=== PATIENT | male | born 1950 | race Caucasian/White ===

== ENCOUNTER 2021-05-22 08:53 | Observation (INO) | payer OTHER, MEDICARE ==
[2021-05-22] MEDS ORDERED: Sodium Chloride 0.9% 10 ML SDV IV PRN (08:58)
[2021-05-22] MEDS ORDERED: Sodium Chloride 0.9% 2.5 ML Syringe FLUSH PRN (08:58)
[2021-05-22] MEDS ORDERED: Sodium Chloride 0.9% 10 ML Syringe FLUSH PRN (08:58)
--- NOTE | 2021-05-22 09:11 | EDM.PDOC ---
ED HPI GENERAL MEDICAL PROBLEM - General Chief Complaint: Neuro Symptoms/Deficits Stated Complaint: POSSIBLE STROKE Time Seen by Provider: 05/22/21 08:58 - History of Present Illness INITIAL COMMENTS - FREE TEXT/NARRATIVE: CHIEF COMPLAINT(S): Slurred speech HISTORY OF PRESENT ILLNESS: This is a 70-year-old man with a past medical history of prostate cancer with recent finishing of his chemotherapy who presents to the emergency department as a medical resuscitation via walk-in triage with a chief complaint of slurred speech. The patient states that prior to arrival he was at the [facility]. He states that at that time he started to have slurred speech and some weakness on his face. He denies any headache, blurry vision, loss of vision, trouble walking, swallowing. States that he has not had a CVA before. He states the onset was approximately 5 minutes prior to arrival. He denies any use of oral anticoagulation and denies any head injury or loss of consciousness. He denies any chest pain, shortness of breath, abdominal pain, nausea or vomiting. He denies any other symptoms. REVIEW OF SYSTEMS: Constitutional: Denies fever, chills. Eyes: Denies eye pain Ears, Nose, Mouth, & Throat: Denies earache Cardiovascular: Denies chest pain Respiratory: Denies shortness of breath Gastrointestinal: Denies Nausea, vomiting, diarrhea, hematochezia. Genitourinary: Denies hematuria Skin:Denies a rash Neurological: Positive for slurred speech and facial weakness. Denies trouble walking, swallowing. Denies any headache. Psychiatric: Denies depression PAST MEDICAL HISTORY: As per history of present illness and as reviewed below otherwise noncontributory. SURGICAL HISTORY: As per history of present illness and as reviewed below otherwise noncontributory. SOCIAL HISTORY: As per history of present illness and as reviewed below otherwise noncontributory. FAMILY HISTORY: As per history of present illness and as reviewed below otherwise noncontributory. EXAMINATION OF ORGAN SYSTEMS/BODY AREAS: VITALS: Blood pressure was 175/113, heart rate 90, respiratory rate 18 with an oxygen saturation of 98% on room air. Temperature 36.2. GENERAL: The patient is well-nourished, well-developed, in no acute distress. HEAD: Normocephalic, atraumatic. EYES: EOMs intact. PERRL. No vertical or horizontal nystagmus. ENT. External ears WNL. Nares patent. Oropharynx is clear with no erythema or exudate. No uvular or tongue swelling. NECK: Supple, no masses. Trachea is midline. LUNGS: No tachypnea or intercostal retractions. Clear to auscultation bilaterally, no wheezing, no rales, no stridor, no rhonchi. CARDIOVASCULAR: Regular rate and rhythm with S1-S2. No murmur, rubs or gallops. No edema. No JVD. ABDOMEN: Soft, non-distended, non-tender. Bowel sounds present in all 4 quadrants. No rebound tenderness, guarding, or peritoneal signs. MUSCULOSKELETAL: No deformity. Patient is moving all 4 limbs spontaneously. NEUROLOGICAL: Alert and oriented x3. Facies are symmetrical. Tongue protrudes midline. Facial sensation is intact. No visual field defects. Shoulder shrug is equal bilaterally. Left upper extremity weakness as compared to right. Slurred speech is present. [id number], [id number] are within normal limits. NIH stroke scale of 2 SKIN: No rashes, or pallor. No signs of injury. MEDICAL DECISION MAKING AND COURSE IN THE ED WITH INTERPRETATION/REVIEW OF DIAGNOSTIC STUDIES: This is a 70-year-old man who presents to the emergency department as a medical resuscitation via walk-in triage with slurred speech and left upper extremity weakness with an NIH stroke scale of 2.. Immediately upon entering the resuscitation room the patient was disrobed, placed on continuous cardiac monitoring, and IV access was established by nursing. Patient is able to speak thus displaying a patent airway, breath sounds are equal bilaterally, and patient has palpable pulses in all 4 extremities. Given the NIH stroke scale of 2 we will undergo a stroke work-up. Xxskq-qt-yaip glucose was 87. Laboratory analysis was unremarkable. Troponin was negative. TSH normal. Qniql-en-quip glucose was 87. The radiological images were viewed by myself along with reading the report from the radiologist. CT head without contrast does not reveal any acute intracranial hemorrhage or abnormality. Mild diffuse cerebral volume loss. CTA of the head and neck do not reveal any acute intracranial abnormality. No large vessel occlusion. Minor carotid atherosclerotic disease without stenosis. After imaging on reevaluation the patient had his symptoms resolved. At this time I did discuss with him that I would like to speak with the neurologist. Therefore I contacted [facility] in [place] and spoke with Dr. Hamilton who at this time recommended MRI, carotid duplex and medical management given that his symptoms had improved. States the patient should be admitted for observation but does not need to be transferred. No TNKase administered given resolving symptoms. Therefore I contacted our hospitalist Dr. Serna who accepted the patient for admission. The patient was amenable to admission at this time DISPOSITION: Admission CONDITION: Serious FINAL IMPRESSION(S)/DIAGNOSES: 1. Acute transient ischemic attack Critical Care Procedure Note Authorized and performed by: Richard St M.D. Critical Care Time: 45 minutes Due to a high probability of clinically significant, life threatening deterioration, the patient required my highest level of preparedness to intervene emergently and I personally spent this critical care time directly and personally managing the patient. This critical care time included obtaining a history, examining the patient, pulse oximetry; ordering and review of studies; arranging urgent treatment with development of a management plan; evaluation of a patients reponse to treatment; frequent assessment; and discussions with other providers. This critical care time was performed to assess and manage the high probability of imminent, life threatening deterioration that could result in multiorgan failure. It was exclusive of separate billable procedures and treating other patients. Please see MDM section and rest of the note for further information on patient assessment and treatment. Please see MDM section and rest of the note for further information on patient assessment and treatment. - Related Data Allergies Allergy/AdvReac Type Severity Reaction Status Date / Time Penicillins Allergy Nausea and Verified 05/22/21 11:41 Vomiting Home Meds: Home Meds Acetaminophen 500 mg PO ASDIRECTED PRN 04/21/20 [History] Ibuprofen 200 mg PO ASDIRECTED PRN 04/21/20 [History] Multivit-Min/FA/Lycopen/Lutein [Centrum Silver Tablet] 1 tab PO DAILY 04/21/20 [History] Past Medical History - Past Health History Medical/Surgical History: Denies Medical/Surgical History HEENT History: Reports: Hard of Hearing, Other (See Below) Other HEENT History: wears glasses, has bilateral hearing aides (has high tone deafness) , has constant ringing in his ears Cardiovascular History: Reports: None Respiratory History: Reports: None Gastrointestinal History: Reports: Hepatitis Other Gastrointestinal History: occasional heartburn- takes tums, Hx of Hepatitis B Genitourinary History: Reports: Other (See Below) Other Genitourinary History: current Prostate cancer Musculoskeletal History: Reports: Arthritis, Fracture Other Musculoskeletal History: hx of fx fingers, toes and right arm Neurological History: Reports: Concussion, Migraines, Seizure Other Neuro History: hx of [place] seizures as a teenager from "growing too fast", has Occular migraines Psychiatric History: Reports: None Endocrine/Metabolic History: Reports: None Hematologic History: Reports: None Immunologic History: Reports: None Oncologic (Cancer) History: Reports: Prostate Dermatologic History: Reports: Other (See Below) Other Dermatologic History: occasional "itchy spots" - Infectious Disease History Infectious Disease History: Reports: Chicken Pox, Hepatitis B, Measles, Mumps - Past Surgical History Musculoskeletal Surgical History: Reports: Other (See Below), Shoulder Surgery Social & Family History - Family History Family Medical History: No Pertinent Family History - Caffeine Use Caffeine Use: Reports: Coffee ED ROS GENERAL - Review of Systems Review Of Systems: See Below ED EXAM, GENERAL - Physical Exam Exam: See Below Course - Vital Signs Last Recorded V/S: Last Vital Signs Temp 36.6 C 05/22/21 16:20 Pulse 73 05/22/21 16:20 Resp 15 05/22/21 16:20 BP 164/91 H 05/22/21 16:20 Pulse Ox 95 05/22/21 16:20 - Orders/Labs/Meds Orders: Active Orders 24 hr Category Date Time Status Admission Status [Patient Status] [ADT] Stat ADT 05/22/21 10:22 Active Assess Neurological Status [RC] CONTINUOUS Care 05/22/21 08:58 Active Blood Glucose Check, Bedside [RC] STAT Care 05/22/21 08:58 Active Cardiac Monitoring [RC] Q8H Care 05/22/21 08:58 Active Communication Order [RC] STAT Care 05/22/21 08:58 Active EKG 12 Lead [EKG Documentation Completion] [RC] STAT Care 05/22/21 08:59 Active Height and Weight [RC] UPON Care 05/22/21 08:58 Active NIH Stroke Scale [RC] Q15M Care 05/22/21 08:58 Active NIH Stroke Scale [RC] STAT Care 05/22/21 08:58 Active Oxygen Therapy, ED [RC] ASDIRECTED Care 05/22/21 08:58 Active Vital Signs [RC] Q15M Care 05/22/21 08:58 Active Sodium Chloride 0.9% [Normal Saline] Med 05/22/21 08:58 Active 10 ml IV ASDIRECTED PRN Sodium Chloride 0.9% [Saline Flush] Med 05/22/21 08:58 Active 10 ml FLUSH ASDIRECTED PRN Sodium Chloride 0.9% [Saline Flush] Med 05/22/21 08:58 Active 2.5 ml FLUSH ASDIRECTED PRN Peripheral IV Insertion Adult [OM.PC] Stat Oth 05/22/21 08:58 Ordered Peripheral IV Insertion Adult [OM.PC] Stat Ot 05/22/21 08:58 Ordered Resuscitation Status Stat Resus Stat 05/22/21 08:58 Ordered Medication Orders Acetaminophen (Acetaminophen 325 Mg Tab) 650 mg PO Q4H PRN PRN Reason: Pain (Mild 1-3)/fever Albuterol/Ipratropium (Albuterol/Ipratropium 3.0-0.5 Mg/3 Ml Neb Soln) 3 ml NEB Q4HRRT PRN PRN Reason: Shortness Of Breath/wheezing Aspirin (Aspirin 81 Mg Tab.Chew) 81 mg PO DAILY CARMEN Atorvastatin Calcium (Atorvastatin 20 Mg Tab) 20 mg PO BEDTIME CARMEN Ondansetron HCl (Ondansetron 4 Mg/2 Ml Sdv) 4 mg IVPUSH Q4H PRN PRN Reason: Nausea/Vomiting Sodium Chloride (Sodium Chloride 0.9% 10 Ml Syringe) 10 ml FLUSH ASDIRECTED PRN PRN Reason: Keep Vein Open Last Admin: 05/22/21 09:23 Dose: 10 ml Documented by: JAMES Sodium Chloride (Sodium Chloride 0.9% 2.5 Ml Syringe) 2.5 ml FLUSH ASDIRECTED PRN PRN Reason: Keep Vein Open Last Admin: 05/22/21 09:23 Dose: 2.5 ml Documented by: HUYENNMEG Sodium Chloride (Sodium Chloride 0.9% 10 Ml Sdv) 10 ml IV ASDIRECTED PRN PRN Reason: IV Use Labs: Laboratory Tests 05/22/21 05/22/21 05/22/21 Range/Units 08:57 08:57 08:57 WBC 4.98 (4.0-11.0) K/uL RBC 4.63 (4.50-5.90) M/uL Hgb 15.0 (13.0-17.0) g/dL Hct 42.8 (38.0-50.0) % MCV 92.4 (80.0-98.0) fL MCH 32.4 H (27.0-32.0) pg MCHC 35.0 (31.0-37.0) g/dL RDW Std Deviation 49.1 (28.0-62.0) fl RDW Coeff of Laquita 15 (11.0-15.0) % Plt Count 297 (150-400) K/uL MPV 9.60 (7.40-12.00) fL Neut % (Auto) 69.7 (48.0-80.0) % Lymph % (Auto) 12.7 L (16.0-40.0) % Benzie % (Auto) 10.0 (0.0-15.0) % Eos % (Auto) 7.0 (0.0-7.0) % Baso % (Auto) 0.6 (0.0-1.5) % Neut # (Auto) 3.5 (1.4-5.7) K/uL Lymph # (Auto) 0.6 (0.6-2.4) K/uL Benzie # (Auto) 0.5 (0.0-0.8) K/uL Eos # (Auto) 0.4 (0.0-0.7) K/uL Baso # (Auto) 0.0 (0.0-0.1) K/uL Nucleated RBC % 0.0 /100WBC Nucleated RBCs # 0 K/uL INR 0.93 APTT 25.8 (18.6-31.3) SEC Sodium 142 (136-148) mmol/L Potassium 3.8 (3.5-5.1) mmol/L Chloride 104 (98-107) mmol/L Carbon Dioxide 29.9 (21.0-32.0) mmol/L BUN 17 (7.0-18.0) mg/dL Creatinine 1.1 (0.8-1.3) mg/dL Est Cr Clr Drug Dosing TNP Estimated GFR (MDRD) > 60.0 ml/min Glucose 77 (74-106) mg/dL Hemoglobin A1c (4.5 - 6.2) % Calcium 8.5 (8.5-10.1) mg/dL Total Bilirubin 0.3 (0.2-1.0) mg/dL AST 24 (15-37) IU/L ALT 45 (14-63) IU/L Alkaline Phosphatase 91 (46-116) U/L Troponin I < 0.050 (0.000-0.056) ng/mL Total Protein 6.6 (6.4-8.2) g/dL Albumin 3.7 (3.4-5.0) g/dL Globulin 2.9 (2.6-4.0) g/dL Albumin/Globulin Ratio 1.3 (0.9-1.6) Triglycerides (0-200) mg/dL Cholesterol (50-200) mg/dL LDL Cholesterol, Calc (60-180) mg/dL VLDL Cholesterol (5-55) mg/dL HDL Cholesterol (40-60) mg/dL Cholesterol/HDL Ratio (3.3-6.0) Vitamin B12 (193-986) pg/mL TSH, Ultra Sensitive (0.36-3.74) uIU/mL 05/22/21 05/22/21 Range/Units 08:57 08:57 WBC (4.0-11.0) K/uL RBC (4.50-5.90) M/uL Hgb (13.0-17.0) g/dL Hct (38.0-50.0) % MCV (80.0-98.0) fL MCH (27.0-32.0) pg MCHC (31.0-37.0) g/dL RDW Std Deviation (28.0-62.0) fl RDW Coeff of Laquita (11.0-15.0) % Plt Count (150-400) K/uL MPV (7.40-12.00) fL Neut % (Auto) (48.0-80.0) % Lymph % (Auto) (16.0-40.0) % Benzie % (Auto) (0.0-15.0) % Eos % (Auto) (0.0-7.0) % Baso % (Auto) (0.0-1.5) % Neut # (Auto) (1.4-5.7) K/uL Lymph # (Auto) (0.6-2.4) K/uL Benzie # (Auto) (0.0-0.8) K/uL Eos # (Auto) (0.0-0.7) K/uL Baso # (Auto) (0.0-0.1) K/uL Nucleated RBC % /100WBC Nucleated RBCs # K/uL INR APTT (18.6-31.3) SEC Sodium (136-148) mmol/L Potassium (3.5-5.1) mmol/L Chloride (98-107) mmol/L Carbon Dioxide (21.0-32.0) mmol/L BUN (7.0-18.0) mg/dL Creatinine (0.8-1.3) mg/dL Est Cr Clr Drug Dosing Estimated GFR (MDRD) ml/min Glucose (74-106) mg/dL Hemoglobin A1c 6.0 (4.5 - 6.2) % Calcium (8.5-10.1) mg/dL Total Bilirubin (0.2-1.0) mg/dL AST (15-37) IU/L ALT (14-63) IU/L Alkaline Phosphatase (46-116) U/L Troponin I (0.000-0.056) ng/mL Total Protein (6.4-8.2) g/dL Albumin (3.4-5.0) g/dL Globulin (2.6-4.0) g/dL Albumin/Globulin Ratio (0.9-1.6) Triglycerides 184 (0-200) mg/dL Cholesterol 226 H (50-200) mg/dL LDL Cholesterol, Calc 127 (60-180) mg/dL VLDL Cholesterol 36 (5-55) mg/dL HDL Cholesterol 62 H (40-60) mg/dL Cholesterol/HDL Ratio 3.6 (3.3-6.0) Vitamin B12 502 (193-986) pg/mL TSH, Ultra Sensitive 2.23 (0.36-3.74) uIU/mL Meds: Medications Generic Name Dose Route Start Last Admin Trade Name Freq PRN Reason Stop Dose Admin Acetaminophen 650 mg 05/22/21 13:03 Acetaminophen 325 Mg Tab PO Q4H PRN Pain (Mild 1-3)/fever Albuterol/Ipratropium 3 ml 05/22/21 13:03 Albuterol/Ipratropium 3.0-0.5 Mg/3 Ml Neb Soln NEB Q4HRRT PRN Shortness Of Breath/wheezing Aspirin 81 mg 05/23/21 09:00 Aspirin 81 Mg Tab.Chew PO DAILY CARMEN Atorvastatin Calcium 20 mg 05/22/21 21:00 Atorvastatin 20 Mg Tab PO BEDTIME CARMEN Ondansetron HCl 4 mg 05/22/21 13:03 Ondansetron 4 Mg/2 Ml Sdv IVPUSH Q4H PRN Nausea/Vomiting Sodium Chloride 10 ml 05/22/21 08:58 05/22/21 09:23 Sodium Chloride 0.9% 10 Ml Syringe FLUSH 10 ml ASDIRECTED PRN Administration Keep Vein Open Sodium Chloride 2.5 ml 05/22/21 08:58 05/22/21 09:23 Sodium Chloride 0.9% 2.5 Ml Syringe FLUSH 2.5 ml ASDIRECTED PRN Administration Keep Vein Open Sodium Chloride 10 ml 05/22/21 08:58 Sodium Chloride 0.9% 10 Ml Sdv IV ASDIRECTED PRN IV Use Discontinued Medications Generic Name Dose Route Start Last Admin Trade Name Freq PRN Reason Stop Dose Admin Aspirin 324 mg 05/22/21 09:48 05/22/21 10:01 Aspirin 81 Mg Tab.Chew PO 05/22/21 09:49 324 mg ONETIME ONE Administration Iopamidol 100 ml 05/22/21 09:18 05/22/21 09:18 Iopamidol 755 Mg/Ml 500 Ml Multipack Bottle IVPUSH 05/22/21 09:19 100 ml ONETIME ONE Administration Departure - Departure Time of Disposition: 10:22 Disposition: Refer to Observation Clinical Impression: TIA (transient ischemic attack) - Discharge Information Sepsis Event Note (ED) - Focused Exam Vital Signs: Vital Signs Temp Pulse Resp BP Pulse Ox 05/22/21 10:30 79 19 155/96 H 94 L 05/22/21 10:15 76 18 156/92 H 88 L 05/22/21 10:00 70 19 159/83 H 94 L 05/22/21 09:45 76 18 158/89 H 93 L 05/22/21 09:30 36.8 C 81 19 157/89 H 92 L 05/22/21 08:53 36.2 C 90 18 175/113 H 98 - My Orders Last 24 Hours: My Active Orders 05/22/21 08:58 Assess Neurological Status [RC] CONTINUOUS Blood Glucose Check, Bedside [RC] STAT Cardiac Monitoring [RC] Q8H Communication Order [RC] STAT Height and Weight [RC] UPON NIH Stroke Scale [RC] Q15M NIH Stroke Scale [RC] STAT Oxygen Therapy, ED [RC] ASDIRECTED Vital Signs [RC] Q15M Sodium Chloride 0.9% [Normal Saline] 10 ml IV ASDIRECTED PRN Sodium Chloride 0.9% [Saline Flush] 10 ml FLUSH ASDIRECTED PRN Sodium Chloride 0.9% [Saline Flush] 2.5 ml FLUSH ASDIRECTED PRN Peripheral IV Insertion Adult [OM.PC] Stat Peripheral IV Insertion Adult [OM.PC] Stat Resuscitation Status Stat 05/22/21 08:59 EKG 12 Lead [EKG Documentation Completion] [RC] STAT 05/22/21 10:22 Admission Status [Patient Status] [ADT] Stat - Assessment/Plan Last 24 Hours: My Active Orders 05/22/21 08:58 Assess Neurological Status [RC] CONTINUOUS Blood Glucose Check, Bedside [RC] STAT Cardiac Monitoring [RC] Q8H Communication Order [RC] STAT Height and Weight [RC] UPON NIH Stroke Scale [RC] Q15M NIH Stroke Scale [RC] STAT Oxygen Therapy, ED [RC] ASDIRECTED Vital Signs [RC] Q15M Sodium Chloride 0.9% [Normal Saline] 10 ml IV ASDIRECTED PRN Sodium Chloride 0.9% [Saline Flush] 10 ml FLUSH ASDIRECTED PRN Sodium Chloride 0.9% [Saline Flush] 2.5 ml FLUSH ASDIRECTED PRN Peripheral IV Insertion Adult [OM.PC] Stat Peripheral IV Insertion Adult [OM.PC] Stat Resuscitation Status Stat 05/22/21 08:59 EKG 12 Lead [EKG Documentation Completion] [RC] STAT 05/22/21 10:22 Admission Status [Patient Status] [ADT] Stat
[2021-05-22] MEDS ORDERED: Iopamidol 755 MG/ML 500 ML Multipack Bottle IVPUSH ONE (09:18)
[2021-05-22 09:26] LABS: BLOOD UREA NITROGEN,BUN 17 mg/dL (7.0-18.0); CARBON DIOXIDE,CO2 29.9 mmol/L (21.0-32.0); CHLORIDE,CL 104 mmol/L (98-107); GLUCOSE RANDOM 77 mg/dL (74-106); POTASSIUM,K 3.8 mmol/L (3.5-5.1); SODIUM,NA 142 mmol/L (136-148)
--- NOTE | 2021-05-22 09:47 | CT ---
INDICATION: Acute stroke, slurred speech, left arm weakness. TECHNIQUE: After standard noncontrast head CT, high resolution axial CT images acquired through the head and neck following rapid intravenous administration of iodinated contrast. Multiplanar MIPS of cranial and cervical vasculature performed. FINDINGS: Noncontrast head CT: There is no intracranial hemorrhage or fluid collection. The downey-white matter differentiation is maintained. Brain parenchymal volume loss is noted. There are nonspecific white matter hypodensities commonly seen with cerebral small vessel disease. The ventricles are of normal morphology. The basal cisterns are clear. CTA head: There is normal filling of the intracranial vasculature; i.e. there is no large vessel occlusion or significant intracranial stenosis. There is no cerebral aneurysm or evidence for vascular malformation. CTA neck: Carotid arteries: There is atherosclerotic plaque. There is no significant stenosis by NASCET criteria. There is no evidence for dissection. Vertebral arteries: There is no significant stenosis. There is no evidence for dissection. The soft tissues of the neck are within normal limits. The cervical spine is in normal alignment. Degenerative changes are noted in the cervical spine. The lung apices are clear. IMPRESSION: No acute intracranial abnormality at CT/CTA. No large vessel occlusion. Minor carotid atherosclerotic disease without stenosis. Jesús Higgins MD Neurointerventional [employer] [facility] Please note that all CT scans at this facility use dose modulation, iterative reconstruction, and/or weight-based dosing when appropriate to reduce radiation dose to as low as reasonably achievable. Dictated by Jesús Higgins MD @ 05/22/2021 11:36:[address] Jesús Higgins @ May 22 2021 11:36AM
--- NOTE | 2021-05-22 09:47 | CT ---
INDICATION: Slurred speech. Left arm weakness. TECHNIQUE: Noncontrast CT images were acquired through the brain. COMPARISON: None. FINDINGS: Prominence of the ventricles and sulci compatible with mild diffuse cerebral volume loss. No mass effect or midline shift. The downey white differentiation is maintained. No acute intracranial hemorrhage or pathologic extra-axial fluid collection. Intracranial atherosclerotic calcifications. The globes are symmetric. The calvarium is intact. Incompletely visualized left maxillary sinus retention cyst or polyp. The mastoid air cells are clear. IMPRESSION: 1. No acute intracranial hemorrhage or mass effect. 2. Mild diffuse cerebral volume loss. Discussed findings with Dr. St at 0945 hrs. Please note that all CT scans at this facility use dose modulation, iterative reconstruction, and/or weight-based dosing when appropriate to reduce radiation dose to as low as reasonably achievable. Dictated by Zeus Otero MD @ 05/22/2021 9:45:[address] Zeus Otero @ May 22 2021 9:45AM
[2021-05-22] MEDS ORDERED: Aspirin 81 MG Tab.Chew PO ONE (09:48)
[2021-05-22] MEDS ORDERED: Ondansetron 4 MG/2 ML SDV IVPUSH PRN (13:03)
[2021-05-22] MEDS ORDERED: Albuterol/Ipratropium 3.0-0.5 MG/3 ML Neb Soln NEB PRN (13:03)
[2021-05-22] MEDS ORDERED: Acetaminophen 325 MG Tab PO PRN (13:03)
--- NOTE | 2021-05-22 14:00 | PCM.EKG ---
#1 Interpretation EKG Date: 05/22/21 Time: 09:24 Rhythm: NSR Rate (Beats/Min): 82 [place]: Normal P-Wave: Present QRS: Normal ST-T: Normal QT: Normal Comparison: No Change (04/28/20) EKG Interpretation Comments: Sinus Rhythm
--- NOTE | 2021-05-22 14:30 | PCM.HP.2 ---
H&P History of Present Illness - General Date of Service: 05/22/21 Admit Problem/Dx: Admission Diagnosis/Problem Admission Diagnosis/Problem TIA, Transient ischemic attack - History of Present Illness Initial Comments - Free Text/Narative: 70-year-old male with a history of prostate cancer s/p radical prostatectomy, currently undergoing external beam radiation therapy for local recurrence presents to the ER with complaints of slurred speech and left facial numbness. Patient was at religious helping set up when around 9 AM he began to experience slurred speech and numbness of his left cheek. He also noticed left arm weakness. Other religious volunteers believe he was having a stroke and brought him to the ER. He denies headaches, visual disturbance or loss, dysphagia, difficulty walking or loss of consciousness. No history of stroke or TIA. No history of ME or cardiovascular disease. Patient denies chest pain, palpitations, abdominal pain. No history of hypertension or anticoagulation use. Patient denies history of hyperlipidemia, HTN or DM. Patient was diagnosed with adenocarcinoma of the prostate in April 2020, and had a radical prostatectomy including bilateral lymph node dissection on 04/27/2020 after he was found to have elevating PSA levels. July 2020 at first follow- up appointment he was found to have persistently elevated PSA and referred to heme-onc. PET/CT showed disease recurrence confined to the prostate bed and patient is currently undergoing adjuvant external beam radiation therapy. ER Course: Temperature 96.6. Pulse 79. BP 155/96. RR 19. 95% on room air. WBC 4.98. Hemoglobin 15. Platelets 297. INR 0.93. PTT 25.8. BMP within normal limits. Troponin negative. PSA 1.82. EKG normal sinus rhythm. Head & Neck CTA: No acute intracranial abnormality, no large vessel occlusion. Head CT: No acute intracranial hemorrhage or mass-effect. Mild diffuse cerebral volume loss. Past medical history: High-grade adenocarcinoma of the prostate s/p radical prostatectomy. Tinnitus and bilateral hearing aids. Denies cardiovascular disease, HLD, HTN or DM. History of hepatitis B. Migraines. Stress incontinence. Home medications: Tadalafil 5 mg prn. Ibuprofen prn for bladder spasm (s/p prostatectomy). Hydroxyzine 25mg tid prn. Allergies: Penicillin Past surgical history: Radical prostatectomy. Shoulder surgery. Abdominal ventral hernia repair with mesh. Family history: Mother of cardiac condition. Father of bladder cancer. Social history: Smokes 1 pack/day >50 years. Denies alcohol use. Denies drug use. Lives at home with his . Retired fitter welder and machinist/machine builder. CODE STATUS: Full code - Related Data Allergies/Adverse Reactions: Allergies Allergy/AdvReac Type Severity Reaction Status Date / Time Penicillins Allergy Nausea and Verified 05/22/21 11:41 Vomiting Home Medications: Home Meds Acetaminophen 500 mg PO ASDIRECTED PRN 04/21/20 [History] Ibuprofen 200 mg PO ASDIRECTED PRN 04/21/20 [History] Multivit-Min/FA/Lycopen/Lutein [Centrum Silver Tablet] 1 tab PO DAILY 04/21/20 [History] Past Medical History - Past Health History Medical/Surgical History: Denies Medical/Surgical History HEENT History: Reports: Hard of Hearing, Other (See Below) Other HEENT History: wears glasses, has bilateral hearing aides (has high tone deafness) , has constant ringing in his ears Cardiovascular History: Reports: None Respiratory History: Reports: None Gastrointestinal History: Reports: Hepatitis Other Gastrointestinal History: occasional heartburn- takes tums, Hx of Hepatitis B Genitourinary History: Reports: Other (See Below) Other Genitourinary History: current Prostate cancer Musculoskeletal History: Reports: Arthritis, Fracture Other Musculoskeletal History: hx of fx fingers, toes and right arm Neurological History: Reports: Concussion, Migraines, Seizure Other Neuro History: hx of [place] seizures as a teenager from "growing too fast", has Occular migraines Psychiatric History: Reports: None Endocrine/Metabolic History: Reports: None Hematologic History: Reports: None Immunologic History: Reports: None Oncologic (Cancer) History: Reports: Prostate Dermatologic History: Reports: Other (See Below) Other Dermatologic History: occasional "itchy spots" - Infectious Disease History Infectious Disease History: Reports: Chicken Pox, Hepatitis B, Measles, Mumps - Past Surgical History Head Surgeries/Procedures: Reports: None HEENT Surgical History: Reports: Oral Surgery Cardiovascular Surgical History: Reports: None Respiratory Surgical History: Reports: None GI Surgical History: Reports: Hernia, Abdominal Other GI Surgeries/Procedures: Ventral hernia repair with mesh Male Surgical History: Reports: None Endocrine Surgical History: Reports: None Neurological Surgical History: Reports: None Musculoskeletal Surgical History: Reports: Other (See Below), Shoulder Surgery Other Musculoskeletal Surgeries/Procedures:: removal of scrapnel in the Oncologic Surgical History: Reports: None Dermatological Surgical History: Reports: None Social & Family History - Family History Family Medical History: No Pertinent Family History - Tobacco Use Tobacco Use Status *Q: Former Tobacco User Years of Tobacco use: 54 Used Tobacco, but Quit: Yes Month/Year Tobacco Last Used: 10 - Caffeine Use Caffeine Use: Reports: Coffee - Recreational Drug Use Recreational Drug Use: No H&P Review of Systems - Review of Systems: Review Of Systems: Comprehensive ROS is negative, except as noted in HPI. Exam - Exam Exam: See Below - Vital Signs Vital Signs: Last Vital Signs Temp 96.6 F L 05/22/21 11:50 Pulse 67 05/22/21 11:50 Resp 16 05/22/21 11:50 BP 152/101 H 05/22/21 11:50 Pulse Ox 95 05/22/21 11:50 Weight: 176 lb 11.2 oz - Exam General: Alert, Oriented, Cooperative HEENT: EOMI, Mucosa Moist & [place], Pupils Equal Neck: Supple. No: Lymphadenopathy, Carotid Bruit, JVD Lungs: Clear to Auscultation, Normal Respiratory Effort Cardiovascular: Regular Rate, Regular Rhythm, Normal S1, Normal S2 GI/Abdominal Exam: Normal Bowel Sounds, Soft, Non-Tender, No Organomegaly Back Exam: Normal Inspection, Full Range of Motion Extremities: Normal Inspection, Normal Range of Motion, No Pedal Edema. No: Joint Swelling, Arm Pain, Taiwo's Sign, Leg Pain Peripheral Pulses: 2+: Dorsalis Pedis (L), Dorsalis Pedis (R) Skin: Warm, Dry, Intact. No: Rash Neurological: Normal Gait, Focal Deficit. No: Normal Speech Neuro Extensive - Mental Status: Alert, Oriented x3, Normal Mood/Affect, Normal Cognition, Memory Intact. No: Memory Loss-Remote Events, Memory Loss-Recent Events Neuro Extensive - Motor, Sensory, Reflexes: Dysarthria, Facial palsy (L), Hemeplagia (L), Motor/Sensory Deficits (Asymmetrical smile. Midline tongue protrusion. No visual field defect. Left arm strength 3/5. Right arm 5/5. Slurred speech.). No: Receptive Aphasia, Expressive Aphasia, Abnormal Finger to Nose - Patient Data Lab Results Last 24 hrs: Laboratory Results - last 24 hr 05/22/21 05/22/21 05/22/21 Range/Units 08:57 08:57 08:57 WBC 4.98 (4.0-11.0) K/uL RBC 4.63 (4.50-5.90) M/uL Hgb 15.0 (13.0-17.0) g/dL Hct 42.8 (38.0-50.0) % MCV 92.4 (80.0-98.0) fL MCH 32.4 H (27.0-32.0) pg MCHC 35.0 (31.0-37.0) g/dL RDW Std Deviation 49.1 (28.0-62.0) fl RDW Coeff of Laquita 15 (11.0-15.0) % Plt Count 297 (150-400) K/uL MPV 9.60 (7.40-12.00) fL Neut % (Auto) 69.7 (48.0-80.0) % Lymph % (Auto) 12.7 L (16.0-40.0) % [place] % (Auto) 10.0 (0.0-15.0) % Eos % (Auto) 7.0 (0.0-7.0) % Baso % (Auto) 0.6 (0.0-1.5) % Neut # (Auto) 3.5 (1.4-5.7) K/uL Lymph # (Auto) 0.6 (0.6-2.4) K/uL [place] # (Auto) 0.5 (0.0-0.8) K/uL Eos # (Auto) 0.4 (0.0-0.7) K/uL Baso # (Auto) 0.0 (0.0-0.1) K/uL Nucleated RBC % 0.0 /100WBC Nucleated RBCs # 0 K/uL INR 0.93 APTT 25.8 (18.6-31.3) SEC Sodium 142 (136-148) mmol/L Potassium 3.8 (3.5-5.1) mmol/L Chloride 104 (98-107) mmol/L Carbon Dioxide 29.9 (21.0-32.0) mmol/L BUN 17 (7.0-18.0) mg/dL Creatinine 1.1 (0.8-1.3) mg/dL Est Cr Clr Drug Dosing TNP Estimated GFR (MDRD) > 60.0 ml/min Glucose 77 (74-106) mg/dL Calcium 8.5 (8.5-10.1) mg/dL Total Bilirubin 0.3 (0.2-1.0) mg/dL AST 24 (15-37) IU/L ALT 45 (14-63) IU/L Alkaline Phosphatase 91 (46-116) U/L Troponin I < 0.050 (0.000-0.056) ng/mL Total Protein 6.6 (6.4-8.2) g/dL Albumin 3.7 (3.4-5.0) g/dL Globulin 2.9 (2.6-4.0) g/dL Albumin/Globulin Ratio 1.3 (0.9-1.6) Result Diagrams: 05/22/21 08:57 05/22/21 08:57 Sepsis Event Note - Evaluation Sepsis Screening Result: No Definite Risk - Focused Exam Vital Signs: Vital Signs Temp Pulse Resp BP Pulse Ox 05/22/21 11:50 96.6 F L 67 16 152/101 H 95 05/22/21 10:30 79 19 155/96 H 94 L 05/22/21 10:15 76 18 156/92 H 88 L 05/22/21 10:00 70 19 159/83 H 94 L 05/22/21 09:45 76 18 158/89 H 93 L 05/22/21 09:30 98.2 F 81 19 157/89 H 92 L 05/22/21 08:53 97.1 F 90 18 175/113 H 98 - Problem List (1) Hypertension SNOMED Code(s): 14522067 ICD Code: I10 - ESSENTIAL (PRIMARY) HYPERTENSION Status: Acute Current Visit: Yes (2) TIA (transient ischemic attack) SNOMED Code(s): 050595320 ICD Code: G45.9 - TRANSIENT CEREBRAL ISCHEMIC ATTACK, UNSPECIFIED Status: Acute Current Visit: Yes (3) S/P prostatectomy SNOMED Code(s): 867957192, 61863863, 064152855 ICD Code: Z90.79 - ACQUIRED ABSENCE OF OTHER GENITAL ORGAN(S) Status: Acute Current Visit: No Problem List Initiated/Reviewed/Updated: Yes Orders Last 24hrs: Active Orders 24 hr Category Date Time Status Admission Status [Patient Status] [ADT] Stat ADT 05/22/21 10:22 Active Admission Status [Patient Status] [ADT] Stat ADT 05/22/21 10:32 Active Ambulate [RC] ASDIRECTED Care 05/22/21 13:03 Active Antiembolic Devices [RC] PER UNIT ROUTINE Care 05/22/21 13:07 Active Assess Neurological Status [RC] CONTINUOUS Care 05/22/21 08:58 Active Blood Glucose Check, Bedside [RC] STAT Care 05/22/21 08:58 Active Cardiac Monitoring [RC] Q8H Care 05/22/21 08:58 Active Communication Order [RC] STAT Care 05/22/21 08:58 Active EKG 12 Lead [EKG Documentation Completion] [RC] STAT Care 05/22/21 08:59 Active Height and Weight [RC] UPON Care 05/22/21 08:58 Active NIH Stroke Scale [RC] Q15M Care 05/22/21 08:58 Active NIH Stroke Scale [RC] STAT Care 05/22/21 08:58 Active Oxygen Therapy [RC] PRN Care 05/22/21 13:03 Active Oxygen Therapy, ED [RC] ASDIRECTED Care 05/22/21 08:58 Active RT Aerosol Therapy [RC] ASDIRECTED Care 05/22/21 13:10 Active VTE/DVT Education [RC] PER UNIT ROUTINE Care 05/22/21 13:03 Active Vital Signs [RC] Q15M Care 05/22/21 08:58 Active Vital Signs [RC] Q4H Care 05/22/21 13:03 Active Baker Bedside Swallow Assessment [RC] ASDIRECTED Care 05/22/21 12:22 Active PT Evaluation and Treatment [CONS] Routine Cons 05/22/21 13:03 Active Heart Healthy Diet [DIET] Diet 05/22/21 Breakfast Active Brain w wo Cont [MR] Timed Exams 05/23/21 07:00 Ordered Echo 2D wo Cont [US] Urgent Exams 05/23/21 08:00 Ordered GLYCOSYLATED HEMOGLOBIN,HGBA1C [CHEM] Routine Lab 05/22/21 14:29 Ordered LIPID PANEL [CHEM] Routine Lab 05/22/21 14:29 Ordered TROPONIN I [CHEM] Routine Lab 05/22/21 15:00 Ordered TSH REFLEX TO FREE T4 [CHEM] Routine Lab 05/22/21 14:29 Ordered UA RFX MACKENZIE AND CULT IF INDIC [URIN] Routine Lab 05/22/21 14:28 Ordered VITAMIN B12 [CHEM] Routine Lab 05/22/21 14:29 Ordered Acetaminophen [TylenoL] Med 05/22/21 13:03 Active 650 mg PO Q4H PRN Albuterol/Ipratropium [DuoNeb 3.0-0.5 MG/3 ML] Med 05/22/21 13:03 Active 3 ml NEB Q4HRRT PRN Aspirin Med 05/23/21 09:00 Ordered 81 mg PO DAILY Ondansetron [Zofran] Med 05/22/21 13:03 Active 4 mg IVPUSH Q4H PRN Sodium Chloride 0.9% [Normal Saline] Med 05/22/21 08:58 Active 10 ml IV ASDIRECTED PRN Sodium Chloride 0.9% [Saline Flush] Med 05/22/21 08:58 Active 10 ml FLUSH ASDIRECTED PRN Sodium Chloride 0.9% [Saline Flush] Med 05/22/21 08:58 Active 2.5 ml FLUSH ASDIRECTED PRN atorvaSTATin [Lipitor] Med 05/22/21 21:00 Ordered 20 mg PO BEDTIME Peripheral IV Insertion Adult [OM.PC] Stat Oth 05/22/21 08:58 Ordered Peripheral IV Insertion Adult [OM.PC] Stat Oth 05/22/21 08:58 Ordered Sequential Compression Device [OM.PC] Per Unit Routine Oth 05/22/21 13:05 Ordered Resuscitation Status Stat Resus Stat 05/22/21 08:58 Ordered Medication Orders Acetaminophen (Acetaminophen 325 Mg Tab) 650 mg PO Q4H PRN PRN Reason: Pain (Mild 1-3)/fever Albuterol/Ipratropium (Albuterol/Ipratropium 3.0-0.5 Mg/3 Ml Neb Soln) 3 ml NEB Q4HRRT PRN PRN Reason: Shortness Of Breath/wheezing Aspirin (Aspirin 81 Mg Tab.Chew) 81 mg PO DAILY CARMEN Atorvastatin Calcium (Atorvastatin 20 Mg Tab) 20 mg PO BEDTIME CARMEN Ondansetron HCl (Ondansetron 4 Mg/2 Ml Sdv) 4 mg IVPUSH Q4H PRN PRN Reason: Nausea/Vomiting Sodium Chloride (Sodium Chloride 0.9% 10 Ml Syringe) 10 ml FLUSH ASDIRECTED PRN PRN Reason: Keep Vein Open Last Admin: 08/15/21 09:23 Dose: 10 ml Documented by: JAMES Sodium Chloride (Sodium Chloride 0.9% 2.5 Ml Syringe) 2.5 ml FLUSH ASDIRECTED PRN PRN Reason: Keep Vein Open Last Admin: 05/22/21 09:23 Dose: 2.5 ml Documented by: JAMES Sodium Chloride (Sodium Chloride 0.9% 10 Ml Sdv) 10 ml IV ASDIRECTED PRN PRN Reason: IV Use Assessment/Plan Comment:: 70-year-old male with a history of prostate cancer s/p radical prostatectomy with recurrence is being admitted for TIA. CTA neck and head were unremarkable. Patient's left arm strength has already improved. Troponins have been negative. 3 PM troponin pending. Admit the patient for observation. Bedside swallow study. Cardiac diet. Allow permissive hypertension. Lipid panel, TSH, vitamin B12, hemoglobin A1c. Urinalysis. 2D echocardiogram. MRI brain. We will consult physical therapy. Start aspirin 81 mg daily. Start atorvastatin 20 mg daily.
[2021-05-22] MEDS ORDERED: atorvaSTATin 20 MG Tab PO SCH (21:00)
[2021-05-23] MEDS ORDERED: Gadobenate Dimeglumine 529 MG/ML 20 ML SDV IVPUSH STA (07:21)
--- NOTE | 2021-05-23 08:26 | MR ---
INDICATION: Transient ischemic attack. TECHNIQUE: Multiplanar multisequence MR imaging was acquired through the brain prior to and following intravenous contrast. COMPARISON: CT brain 05/22/2021. FINDINGS: Punctate focus of diffusion restriction and T2 prolongation within the right internal capsule posterior limb, compatible with acute infarction. Prominence of the ventricles and sulci compatible with mild diffuse cerebral volume loss. No mass effect or midline shift. A few punctate T2 FLAIR hyperintensities in the supratentorial white matter, nonspecific. No intracranial hemorrhage or pathologic extra-axial fluid collection. No pathologic intracranial enhancement. The major arterial flow voids of the skullbase are preserved. The globes are symmetric. Small left maxillary sinus retention cyst or polyp. The mastoid air cells are clear. IMPRESSION: 1. Punctate acute infarction within the right internal capsule posterior limb. 2. Few punctate T2 FLAIR hyperintensities in the supratentorial white matter are nonspecific, though typical for sequelae of minimal chronic microvascular ischemic changes or migraine headaches. 3. Mild diffuse cerebral volume loss. Dictated by Zeus Otero MD @ 05/23/2021 8:24:[address] Zeus Otero @ May 23 2021 8:24AM
[2021-05-23] MEDS ORDERED: Aspirin 81 MG Tab.Chew PO SCH (09:00)
--- NOTE | 2021-05-23 11:06 | PCM.DCSUM1 ---
Discharge Summary - Hospital Course Free Text/Narrative:: 70-year-old male with a history of prostate cancer s/p radical prostatectomy currently undergoing radiation for local recurrence presented to the ER with slurred speech and left facial numbness. Patient was volunteering at [employer] around 9 AM when volunteers noticed the patient's speech was slurred and left side of his mouth was drooping. Patient stated he felt numbness over the left cheek. He also noticed left arm weakness. He was brought to the ER. Denied headaches, visual disturbances, dysphagia or loss of consciousness. No history of stroke or TIA. No history of ME or cardiovascular disease. Patient's temperature was 96.6, pulse 79, BP 155/96, 95% on room air. CBC and BMP were unremarkable. Troponins were negative. EKG showed normal sinus rhythm. Head and neck CTA showed no acute intracranial abnormality or large vessel occlusion. On exam exam he had difficulty speaking and 4/5 L arm strength vs 5/5 on right. Signs and symptoms resolved within 6 hours of presenting. Patient was admitted and started on aspirin, atorvastatin 20 mg. Brain MRI showed punctate acute infarction within the right internal capsule posterior limb. Cholesterol was 226. LDL 127. HDL 62. Vitamin B12 502. TSH 2.23. Urinalysis was unremarkable. Patient was evaluated by physical therapy and cleared. Blood pressure remained elevated to allow for permissive HTN. He is being discharged on amlodipine 5 mg daily. We will also start him on atorvastatin 40 mg daily. Aspirin 81 mg daily. Patient has a greater than [id number] history of smoking and is currently smoking 1 pack/day. Patient counseled on importance of tobacco cessation. She will be discharged on a Zio patch. He will follow up with Dr. Pineda, neurology. He will follow up with PCP for controlling risk factors and hypertension management. - Discharge Data Discharge Date: 05/23/21 Discharge Disposition: Home, Self-Care 01 Condition: Good - Referral to Home Health Primary Care Physician: Odin Mata NP - Discharge Diagnosis/Problem(s) (1) Hypertension SNOMED Code(s): 02597124 ICD Code: I10 - ESSENTIAL (PRIMARY) HYPERTENSION Status: Acute Current Visit: Yes (2) TIA (transient ischemic attack) SNOMED Code(s): 000724055 ICD Code: G45.9 - TRANSIENT CEREBRAL ISCHEMIC ATTACK, UNSPECIFIED Status: Acute Current Visit: Yes (3) S/P prostatectomy SNOMED Code(s): 414270834, 03572378, 163777455 ICD Code: Z90.79 - ACQUIRED ABSENCE OF OTHER GENITAL ORGAN(S) Status: Acute Current Visit: No (4) Stroke SNOMED Code(s): 008645582 ICD Code: I63.9 - CEREBRAL INFARCTION, UNSPECIFIED Status: Acute Current Visit: Yes - Patient Summary/Data Consults: Consultations 05/22/21 13:03 PT Evaluation and Treatment [CONS] Routine - Patient Instructions Diet: Heart Healthy Diet Activity: As Tolerated Other/Special Instructions: You were admitted to the hospital and found to have a stroke. You are being prescribed medications to help control your risk factors such as high cholesterol, high blood pressure. Take 1 aspirin 81 mg daily. Take atorvastatin 40 mg at bedtime daily -for high cholesterol. Take amlodipine 5 mg daily -for high blood pressure. You will also wear a Zio patch for 2 weeks to monitor your heart rhythm. You have a prescription for this. The results of this will go to the neurologist Dr. Garcia, who you will be set up with for a follow-up appointment. It is very important that you work towards quitting smoking. This is a risk factor for having a stroke. Please see your PCP regarding your high blood pressure and amlodipine prescription refill. He may want to adjust this medication. If you experience any swelling in your legs, racing heartbeat, dizziness, facial flushing, please speak with your PCP. If you experience new onset of facial weakness, difficulty speaking, weakness on one side of your body, drooling, headaches, dizziness, lightheadedness or loss of consciousness, please seek medical attention. - Discharge Plan *PRESCRIPTION DRUG MONITORING PROGRAM REVIEWED*: Not Applicable *COPY OF PRESCRIPTION DRUG MONITORING REPORT IN PATIENT SARAH: Not Applicable Prescriptions/Med Rec: Aspirin 81 mg PO DAILY 30 Days #30 tab.chew atorvaSTATin [Lipitor] 40 mg PO BEDTIME 30 Days #30 tab amLODIPine [Norvasc] 5 mg PO DAILY #30 tab Home Medications: Home Meds Acetaminophen 500 mg PO ASDIRECTED PRN 04/21/20 [History] Multivit-Min/FA/Lycopen/Lutein [Centrum Silver Tablet] 1 tab PO DAILY 04/21/20 [History] Aspirin 81 mg PO DAILY 30 Days #30 tab.chew 05/23/21 [Rx] amLODIPine [Norvasc] 5 mg PO DAILY #30 tab 05/23/21 [Rx] atorvaSTATin [Lipitor] 40 mg PO BEDTIME 30 Days #30 tab 05/23/21 [Rx] Patient Handouts: Stroke Prevention, [id number], Transient Ischemic Attack, [id number], Atorvastatin tablets, Amlodipine Oral Tablets, Aspirin, ASA oral tablets, Managing Your Hypertension Referrals: Marti Pineda MD [Physician] - (A referral has been sent to the neurologist Dr. Pineda; her office will call you to set up an appointment.) Yamil Gale MD [Ordering Only Provider] - 05/30/21 9:15 am (Please arrive 15 mintues early, with your ID and wearing a face covering. ) - Discharge Summary/Plan Comment DC Time >30 min.: Yes Total # of Minutes for Discharge Time: 31 - General Info Admission Dx/Problem (Free Text: Admission Diagnosis/Problem Admission Diagnosis/Problem TIA, Transient ischemic attack - Review of Systems General: Reports: No Symptoms HEENT: Reports: No Symptoms Pulmonary: Reports: No Symptoms Cardiovascular: Reports: No Symptoms Gastrointestinal: Reports: No Symptoms Genitourinary: Reports: No Symptoms Musculoskeletal: Reports: No Symptoms Skin: Reports: No Symptoms Neurological: Denies: Confusion, Dizziness, Headache, Numbness, Paresthesia, Trouble Speaking, Difficulty Walking, Weakness Psychiatric: Reports: No Symptoms - Patient Data Vitals - Most Recent: Last Vital Signs Temp 96.4 F L 05/23/21 08:59 Pulse 64 05/23/21 08:59 Resp 16 05/23/21 04:00 BP 161/72 H 05/23/21 08:59 Pulse Ox 95 05/23/21 08:59 Weight - Most Recent: 176 lb 11.2 oz I&O - Last 24 hours: Intake & Output 05/22/21 05/23/21 05/23/21 22:59 06:59 14:59 Intake Total 406 400 Output Total 400 1600 Balance 6 -1200 Lab Results - Last 24 hrs: Laboratory Results - last 24 hr 05/22/21 05/22/21 05/22/21 Range/Units 08:57 08:57 14:30 Hemoglobin A1c 6.0 (4.5 - 6.2) % Troponin I (0.000-0.056) ng/mL Triglycerides 184 (0-200) mg/dL Cholesterol 226 H (50-200) mg/dL LDL Cholesterol, Calc 127 (60-180) mg/dL VLDL Cholesterol 36 (5-55) mg/dL HDL Cholesterol 62 H (40-60) mg/dL Cholesterol/HDL Ratio 3.6 (3.3-6.0) Vitamin B12 502 (193-986) pg/mL TSH, Ultra Sensitive 2.23 (0.36-3.74) uIU/mL Urine Color YELLOW Urine Appearance CLEAR Urine pH 6.0 (5.0-8.0) Ur Specific [place] 1.015 (1.001-1.035) Urine Protein NEGATIVE (NEGATIVE) mg/dL Urine Glucose (UA) NEGATIVE (NEGATIVE) mg/dL Urine Ketones NEGATIVE (NEGATIVE) mg/dL Urine Occult Blood NEGATIVE (NEGATIVE) Urine Nitrite NEGATIVE (NEGATIVE) Urine Bilirubin NEGATIVE (NEGATIVE) Urine Urobilinogen 0.2 (<2.0) EU/dL Ur Leukocyte Esterase NEGATIVE (NEGATIVE) 05/22/21 Range/Units 14:56 Hemoglobin A1c (4.5 - 6.2) % Troponin I < 0.050 (0.000-0.056) ng/mL Triglycerides (0-200) mg/dL Cholesterol (50-200) mg/dL LDL Cholesterol, Calc (60-180) mg/dL VLDL Cholesterol (5-55) mg/dL HDL Cholesterol (40-60) mg/dL Cholesterol/HDL Ratio (3.3-6.0) Vitamin B12 (193-986) pg/mL TSH, Ultra Sensitive (0.36-3.74) uIU/mL Urine Color Urine Appearance Urine pH (5.0-8.0) Ur Specific [place] (1.001-1.035) Urine Protein (NEGATIVE) mg/dL Urine Glucose (UA) (NEGATIVE) mg/dL Urine Ketones (NEGATIVE) mg/dL Urine Occult Blood (NEGATIVE) Urine Nitrite (NEGATIVE) Urine Bilirubin (NEGATIVE) Urine Urobilinogen (<2.0) EU/dL Ur Leukocyte Esterase (NEGATIVE) Med Orders - Current: Current Medications Acetaminophen (Acetaminophen 325 Mg Tab) 650 mg PO Q4H PRN PRN Reason: Pain (Mild 1-3)/fever Albuterol/Ipratropium (Albuterol/Ipratropium 3.0-0.5 Mg/3 Ml Neb Soln) 3 ml NEB Q4HRRT PRN PRN Reason: Shortness Of Breath/wheezing Aspirin (Aspirin 81 Mg Tab.Chew) 81 mg PO DAILY [facility] Last Admin: 05/23/21 09:01 Dose: 81 mg Documented by: Atorvastatin Calcium (Atorvastatin 20 Mg Tab) 20 mg PO BEDTIME [facility] Last Admin: 05/22/21 20:17 Dose: 20 mg Documented by: Ondansetron HCl (Ondansetron 4 Mg/2 Ml Sdv) 4 mg IVPUSH Q4H PRN PRN Reason: Nausea/Vomiting Sodium Chloride (Sodium Chloride 0.9% 10 Ml Syringe) 10 ml FLUSH ASDIRECTED PRN PRN Reason: Keep Vein Open Last Admin: 05/22/21 09:23 Dose: 10 ml Documented by: Sodium Chloride (Sodium Chloride 0.9% 2.5 Ml Syringe) 2.5 ml FLUSH ASDIRECTED PRN PRN Reason: Keep Vein Open Last Admin: 05/22/21 09:23 Dose: 2.5 ml Documented by: Sodium Chloride (Sodium Chloride 0.9% 10 Ml Sdv) 10 ml IV ASDIRECTED PRN PRN Reason: IV Use Discontinued Medications Aspirin (Aspirin 81 Mg Tab.Chew) 324 mg PO ONETIME ONE Stop: 05/22/21 09:49 Last Admin: 05/22/21 10:01 Dose: 324 mg Documented by: Gadobenate Dimeglumine (Gadobenate Dimeglumine 529 Mg/Ml 20 Ml Sdv) 20 ml IVPUSH ONETIME STA Stop: 05/23/21 07:22 Last Admin: 05/23/21 07:22 Dose: 15 ml Documented by: Iopamidol (Iopamidol 755 Mg/Ml 500 Ml Multipack Bottle) 100 ml IVPUSH ONETIME ONE Stop: 05/22/21 09:19 Last Admin: 05/22/21 09:18 Dose: 100 ml Documented by: - Exam General: Reports: Alert, Oriented, No Acute Distress HEENT: Reports: Pupils Equal Neck: Reports: Supple, No JVD Lungs: Reports: Clear to Auscultation Cardiovascular: Reports: Regular Rate, Regular Rhythm GI/Abdominal Exam: Normal Bowel Sounds, Soft, Non-Tender Extremities: Normal Inspection, Normal Range of Motion, No Pedal Edema. No: Taiwo's Sign, Leg Pain Neurological: Reports: Normal Gait, Normal Speech (Speaking clearly now), Sensation Intact, Other (Symmetrical facies. )
--- NOTE | 2021-05-24 12:44 | ECHO ---
EXAM DATE: 05/22/21 PATIENT'S AGE: 70 The ECHO report has been scanned into [employer] and can be seen in this patient's EMR (Electronic Medical Record) under the REPORTS section. The report has also been scanned into PACS. PAT
== END 2021-05-23 13:00 | disposition home or self-care (01) ==
LOC: MW.ED 08:53 → MW.MS 10:32
PROVIDERS: ADMIT Student in an Organized Health Care Education/Training Program; ATTEND Student in an Organized Health Care Education/Training Program
DX: G45.9 Transient cerebral ischemic attack, unspecified (principal); I63.9 Cerebral infarction, unspecified; Z90.79 Acquired absence of other genital organ(s); I10 Essential (primary) hypertension; Z79.899 Other long term (current) drug therapy; Z85.46 Personal history of malignant neoplasm of prostate; Z88.0 Allergy status to penicillin; Z87.891 Personal history of nicotine dependence
CPT/HCPCS: 36415; 70450; 70496; 70498; 70553; 80053; 80061; 81003; 82607; 83036; 84443; 84484; 85025; 85610; 85730; 93005; 93306; 97161; 99285; A9270; A9577; G0378; Q9967

== ENCOUNTER 2021-11-09 17:22 | Emergency (ER) | payer OTHER, MEDICARE ==
[2021-11-09] MEDS ORDERED: Octyl 2-Cyanoacrylate 1 Tube TOP ONE (18:20)
== END 2021-11-09 19:40 | disposition home or self-care (01) ==
LOC: MW.ED 17:22
DX: S61.214A Laceration without foreign body of right ring finger without damage to nail, initial encounter (principal); E78.00 Pure hypercholesterolemia, unspecified; I10 Essential (primary) hypertension; Z79.82 Long term (current) use of aspirin; Z88.0 Allergy status to penicillin; Z79.899 Other long term (current) drug therapy; W23.0XXA Caught, crushed, jammed, or pinched between moving objects, initial encounter
CPT/HCPCS: 12001; 73130; 99283; A9270

== ENCOUNTER 2021-11-24 15:28 | Emergency (ER) | payer OTHER, MEDICARE ==
[2021-11-24] MEDS ORDERED: Sodium Chloride 0.9% 1,000 ML IV ONE (15:51)
[2021-11-24] MEDS ORDERED: Ondansetron 4 MG/2 ML SDV IVPUSH ONE (16:45)
[2021-11-24] MEDS ORDERED: Ketorolac 30 MG/ML SDV IVPUSH ONE (16:45)
[2021-11-24] MEDS ORDERED: Metoclopramide 10 MG/2 ML SDV IV ONE (16:46)
[2021-11-24] MEDS ORDERED: diphenhydrAMINE 50 MG/ML SDV IVPUSH ONE (16:46)
== END 2021-11-24 17:33 | disposition home or self-care (01) ==
LOC: MW.ED 15:28
DX: J01.10 Acute frontal sinusitis, unspecified (principal); J01.00 Acute maxillary sinusitis, unspecified; I10 Essential (primary) hypertension; E78.00 Pure hypercholesterolemia, unspecified; Z79.899 Other long term (current) drug therapy; Z79.82 Long term (current) use of aspirin; Z88.0 Allergy status to penicillin; Z72.0 Tobacco use
CPT/HCPCS: 70450; 96374; 96375; 99284; J1200; J1885; J2405; J2765; J7030

== ENCOUNTER 2023-04-15 15:21 | Emergency (ER) | payer OTHER | END 2023-04-15 19:19 | disposition home or self-care (01) | LOC: MW.ED 15:21 | DX: R33.9 Retention of urine, unspecified (principal); E78.00 Pure hypercholesterolemia, unspecified; I10 Essential (primary) hypertension; Z79.82 Long term (current) use of aspirin; Z79.899 Other long term (current) drug therapy; Z88.0 Allergy status to penicillin | CPT/HCPCS: 72192; 72192-26; 99283 ==

== ENCOUNTER 2024-12-28 06:38 | Emergency (ER) | payer OTHER, MEDICARE ==
[2024-12-28] MEDS ORDERED: Sodium Chloride 0.9% 10 ML Syringe FLUSH PRN (07:26)
[2024-12-28 07:32] LABS: BASOPHILS ABSOLUTE AUTO 0.04 K/uL (0.00-0.20); BASOPHILS PERCENT AUTO 0.3 % (0.0-1.0); EOSINOPHILS ABSOLUTE AUTO 0.18 K/uL (0.00-0.45); EOSINOPHILS PERCENT AUTO 1.5 % (0.0-6.0); HEMOGLOBIN 14.7 g/dL (14.0-18.0); IMMATURE GRAN ABSOLUTE AUTO 0.03 K/uL (0.00-0.05); IMMATURE GRAN PERCENT AUTO 0.2 % (0.0-0.4); LYMPHOCYTES ABSOLUTE AUTO 0.36 K/uL (1.00-4.80); MEAN CORPUSCULAR HEMOGLOBIN 32.9 pg (28.0-32.0); MONOCYTES PERCENT AUTO 7.4 % (0.0-8.0); NEUTROPHILS ABSOLUTE AUTO 10.62 K/uL (1.80-7.70); NEUTROPHILS PERCENT AUTO 87.6 % (41.0-71.0); PLATELET COUNT,PLT 236 K/uL (150-400); RED BLOOD CELL COUNT 4.47 M/uL (4.52-5.90); WHITE BLOOD CELL COUNT,WBC 12.13 K/uL (3.9-11.3)
[2024-12-28] MEDS: Sodium Chloride 0.9% 1,000 ML IV SCH (07:40)
[2024-12-28 07:43] LABS: BILIRUBIN TOTAL 0.7 mg/dL (0.2-1.0); POTASSIUM,K 4.2 mmol/L (3.5-5.1); PROTEIN TOTAL,TP 6.7 g/dL (6.4-8.2)
[2024-12-28 07:53] LABS: INR 0.97 (0.86-1.11)
[2024-12-28] MEDS ORDERED: Naloxone 0.4 MG/ML SDV IVPUSH PRN ×2 (07:54→14:24)
[2024-12-28 08:01] LABS: A/G RATIO 1.2 (0.9-1.6); ALBUMIN 3.7 g/dL (3.4-5.0); CALCIUM 8.4 mg/dL (8.5-10.1); CARBON DIOXIDE,CO2 25.8 mmol/L (21.0-32.0); CREATININE 1.3 mg/dL (0.8-1.3); EST CRCL DRUG DOSING (CG) 54.72 mL/min; MAGNESIUM 1.9 mg/dL (1.8-2.4)
[2024-12-28] MEDS: HYDROmorphone 0.5 MG/0.5 ML Syringe IVPUSH ONE ×2 (08:07→15:10)
[2024-12-28 08:09] LABS: BILIRUBIN,URINE NEGATIVE (NEGATIVE); COLOR,URINE YELLOW; GLUCOSE,URINE NEGATIVE (NEGATIVE); KETONES,URINE NEGATIVE (NEGATIVE); LEUKOCYTE ESTERASE,URINE NEGATIVE (NEGATIVE); NITRITE,URINE POSITIVE (NEGATIVE); OCCULT BLOOD,URINE NEGATIVE (NEGATIVE); PROTEIN,URINE NEGATIVE (NEGATIVE); UROBILINOGEN,URINE 0.2 EU/dL (<2.0)
[2024-12-28 08:11] LABS: APPEARANCE,URINE HAZY; BACTERIA,URINE RARE (NEGATIVE); EPITHELIAL CELLS,URINE RARE (NONE-FEW); RBC,URINE 0-1 (0-2/HPF); WBC,URINE 0-1 (0-5/HPF)
[2024-12-28] MEDS: Iopamidol 755 MG/ML 500 ML Multipack Bottle IVPUSH STA (09:29)
[2024-12-28] MEDS: metroNIDAZOLE/Normal Saline 500 MG in Premix Bag 1 BAG IV ONE (12:28)
[2024-12-28] MEDS: cefTRIAXone 1 GM in Sodium Chloride 0.9% 50 ML IV ONE (13:34)
== END 2024-12-28 19:33 ==
LOC: MW.ED 06:38
DX: N39.0 Urinary tract infection, site not specified (principal); I89.8 Other specified noninfective disorders of lymphatic vessels and lymph nodes; I10 Essential (primary) hypertension; E78.00 Pure hypercholesterolemia, unspecified; F17.210 Nicotine dependence, cigarettes, uncomplicated; Z88.0 Allergy status to penicillin; Z79.890 Hormone replacement therapy; Z79.899 Other long term (current) drug therapy
CPT/HCPCS: 36415; 74177; 80053; 81001; 83735; 85025; 85610; 87086; 96361; 96365; 96367; 96375; 96376; 99285; J0696; J1836; J7030; Q9967

== ENCOUNTER 2025-01-06 12:03 | Emergency (ER) | payer OTHER ==
[2025-01-06 14:10] LABS: BASOPHILS ABSOLUTE AUTO 0.04 K/uL (0.00-0.20); BASOPHILS PERCENT AUTO 0.5 % (0.0-1.0); EOSINOPHILS ABSOLUTE AUTO 0.25 K/uL (0.00-0.45); EOSINOPHILS PERCENT AUTO 3.2 % (0.0-6.0); HEMATOCRIT 41.3 % (42.0-52.0); HEMOGLOBIN 13.8 g/dL (14.0-18.0); IMMATURE GRAN ABSOLUTE AUTO 0.14 K/uL (0.00-0.05); IMMATURE GRAN PERCENT AUTO 1.8 % (0.0-0.4); LYMPHOCYTES ABSOLUTE AUTO 0.66 K/uL (1.00-4.80); LYMPHOCYTES PERCENT AUTO 8.6 % (24.0-44.0); MEAN CORPUSCULAR HEMOGLOBIN 31.9 pg (28.0-32.0); MEAN CORPUSCULAR HGB CONC 33.4 g/dL (32.0-36.0); MEAN CORPUSCULAR VOLUME 95.4 fL (83.0-99.0); MEAN PLATELET VOLUME 9.5 fL (9.4-12.4); MONOCYTES ABSOLUTE AUTO 0.58 K/uL (0.00-0.80); MONOCYTES PERCENT AUTO 7.5 % (0.0-8.0); NEUTROPHILS ABSOLUTE AUTO 6.04 K/uL (1.80-7.70); NEUTROPHILS PERCENT AUTO 78.4 % (41.0-71.0); PLATELET COUNT,PLT 426 K/uL (150-400); RED BLOOD CELL COUNT 4.33 M/uL (4.52-5.90); WHITE BLOOD CELL COUNT,WBC 7.71 K/uL (3.9-11.3)
[2025-01-06 14:35] LABS: A/G RATIO 0.8 (0.9-1.6); BILIRUBIN TOTAL 0.2 mg/dL (0.2-1.0); CALCIUM 8.9 mg/dL (8.5-10.1); CREATININE 1.1 mg/dL (0.8-1.3); EST CRCL DRUG DOSING (CG) 64.26 mL/min; PROTEIN TOTAL,TP 6.9 g/dL (6.4-8.2)
== END 2025-01-06 15:09 | disposition home or self-care (01) ==
LOC: MW.ED 12:03
DX: R19.5 Other fecal abnormalities (principal); I10 Essential (primary) hypertension; E78.00 Pure hypercholesterolemia, unspecified; Z75.8 Other problems related to medical facilities and other health care; Z88.0 Allergy status to penicillin; Z79.890 Hormone replacement therapy; Z79.899 Other long term (current) drug therapy
CPT/HCPCS: 36415; 80053; 85025; 86850; 86900; 86901; 99283; 99284

== ENCOUNTER 2025-01-29 13:55 | Emergency (ER) | payer OTHER ==
[2025-01-29] MEDS ORDERED: Sodium Chloride 0.9% 10 ML Syringe FLUSH PRN (14:19)
[2025-01-29] MEDS ORDERED: Sodium Chloride 0.9% 2.5 ML Syringe FLUSH PRN (14:19)
[2025-01-29 14:46] LABS: BASOPHILS ABSOLUTE AUTO 0.04 K/uL (0.00-0.20); BASOPHILS PERCENT AUTO 0.7 % (0.0-1.0); EOSINOPHILS ABSOLUTE AUTO 0.21 K/uL (0.00-0.45); EOSINOPHILS PERCENT AUTO 3.7 % (0.0-6.0); HEMATOCRIT 38.1 % (42.0-52.0); HEMOGLOBIN 13.1 g/dL (14.0-18.0); IMMATURE GRAN ABSOLUTE AUTO 0.02 K/uL (0.00-0.05); IMMATURE GRAN PERCENT AUTO 0.3 % (0.0-0.4); LYMPHOCYTES ABSOLUTE AUTO 0.63 K/uL (1.00-4.80); MEAN CORPUSCULAR HEMOGLOBIN 32.5 pg (28.0-32.0); MEAN CORPUSCULAR HGB CONC 34.4 g/dL (32.0-36.0); MEAN CORPUSCULAR VOLUME 94.5 fL (83.0-99.0); MEAN PLATELET VOLUME 9.2 fL (9.4-12.4); MONOCYTES ABSOLUTE AUTO 0.42 K/uL (0.00-0.80); MONOCYTES PERCENT AUTO 7.3 % (0.0-8.0); PLATELET COUNT,PLT 279 K/uL (150-400); RED BLOOD CELL COUNT 4.03 M/uL (4.52-5.90); WHITE BLOOD CELL COUNT,WBC 5.72 K/uL (3.9-11.3)
[2025-01-29 15:16] LABS: ALBUMIN 3.2 g/dL (3.4-5.0); BILIRUBIN TOTAL 0.4 mg/dL (0.2-1.0); CALCIUM 8.6 mg/dL (8.5-10.1); CARBON DIOXIDE,CO2 29.2 mmol/L (21.0-32.0); EST CRCL DRUG DOSING (CG) 71.13 mL/min; MAGNESIUM 1.9 mg/dL (1.8-2.4); POTASSIUM,K 3.6 mmol/L (3.5-5.1); PROTEIN TOTAL,TP 6.5 g/dL (6.4-8.2)
== END 2025-01-29 16:39 | disposition home or self-care (01) ==
LOC: MW.ED 13:55
DX: M71.21 Synovial cyst of popliteal space [Baker], right knee (principal); I10 Essential (primary) hypertension; E78.00 Pure hypercholesterolemia, unspecified; Z88.0 Allergy status to penicillin; Z79.890 Hormone replacement therapy; Z79.899 Other long term (current) drug therapy
CPT/HCPCS: 36415; 80053; 83735; 83880; 85025; 93971-26-RT; 93971-RT; 99283; 99284

== ENCOUNTER 2025-03-09 10:50 | Emergency (ER) | payer OTHER ==
[2025-03-09 11:50] LABS: BASOPHILS ABSOLUTE AUTO 0.04 K/uL (0.00-0.20); BASOPHILS PERCENT AUTO 0.7 % (0.0-1.0); EOSINOPHILS ABSOLUTE AUTO 0.36 K/uL (0.00-0.45); EOSINOPHILS PERCENT AUTO 6.7 % (0.0-6.0); HEMATOCRIT 37.1 % (42.0-52.0); HEMOGLOBIN 12.7 g/dL (14.0-18.0); IMMATURE GRAN ABSOLUTE AUTO 0.01 K/uL (0.00-0.05); IMMATURE GRAN PERCENT AUTO 0.2 % (0.0-0.4); LYMPHOCYTES ABSOLUTE AUTO 0.75 K/uL (1.00-4.80); LYMPHOCYTES PERCENT AUTO 13.9 % (24.0-44.0); MEAN CORPUSCULAR HEMOGLOBIN 32.2 pg (28.0-32.0); MEAN CORPUSCULAR HGB CONC 34.2 g/dL (32.0-36.0); MEAN CORPUSCULAR VOLUME 94.2 fL (83.0-99.0); MEAN PLATELET VOLUME 9.3 fL (9.4-12.4); MONOCYTES ABSOLUTE AUTO 0.47 K/uL (0.00-0.80); MONOCYTES PERCENT AUTO 8.7 % (0.0-8.0); NEUTROPHILS ABSOLUTE AUTO 3.78 K/uL (1.80-7.70); NEUTROPHILS PERCENT AUTO 69.8 % (41.0-71.0); PLATELET COUNT,PLT 234 K/uL (150-400); RED BLOOD CELL COUNT 3.94 M/uL (4.52-5.90); WHITE BLOOD CELL COUNT,WBC 5.41 K/uL (3.9-11.3)
[2025-03-09 12:21] LABS: A/G RATIO 1.1 (0.9-1.6); ALBUMIN 3.2 g/dL (3.4-5.0); BILIRUBIN TOTAL 0.3 mg/dL (0.2-1.0); CARBON DIOXIDE,CO2 27.5 mmol/L (21.0-32.0); CREATININE 1.1 mg/dL (0.8-1.3); EST CRCL DRUG DOSING (CG) 64.67 mL/min; POTASSIUM,K 3.9 mmol/L (3.5-5.1)
== END 2025-03-09 14:30 | disposition home or self-care (01) ==
LOC: MW.ED 10:50
DX: S86.111A Strain of other muscle(s) and tendon(s) of posterior muscle group at lower leg level, right leg, initial encounter (principal); I10 Essential (primary) hypertension; E78.00 Pure hypercholesterolemia, unspecified; Z88.0 Allergy status to penicillin; Z79.899 Other long term (current) drug therapy; Z75.3 Unavailability and inaccessibility of health-care facilities; Z79.890 Hormone replacement therapy; X58.XXXA Exposure to other specified factors, initial encounter; Y93.89 Activity, other specified
CPT/HCPCS: 36415; 80053; 85025; 85379; 93971-26-RT; 93971-RT; 99283; 99284